=== PATIENT | female | born 1990 | race Caucasian/White ===

== ENCOUNTER 2025-04-14 13:54 | Emergency (ER) | payer MEDICAID ==
[2025-04-14 14:05] VITALS: BP 125/85; PULSE 84
[2025-04-14] MEDS: Erythromycin Base 0.5% Ophth Oint 3.5 GM Tube EYELF ONE (14:15)
== END 2025-04-14 14:25 | disposition home or self-care (01) ==
LOC: DL.ED 13:54
DX: H10.32 Unspecified acute conjunctivitis, left eye (principal)
CPT/HCPCS: 99283; A9270